=== PATIENT | male | born 1940 | race Caucasian/White ===

== ENCOUNTER 2020-11-20 04:42 | Day surgery (SDC) | payer OTHER, BC ==
[2020-11-19 10:44] VITALS: BMI 32.5
[2020-11-20] MEDS ORDERED: LIDOCAINE HCL 1% PRESERVATIVE FREE - 30ML VIAL IJ ONE (10:15)
[2020-11-20] MEDS ORDERED: IOHEXOL 180 MG/1 ML ML IJ ONE (10:16)
[2020-11-20] MEDS ORDERED: DEXAMETHASONE SOD PHOSPHATE 10 MG/1 ML VIAL IM ONE (10:20)
[2020-11-20 10:42] VITALS: TEMP 97.8
[2020-11-20 11:05] VITALS: BP 133/67; PULSE 66
== END 2020-11-20 10:55 | disposition home or self-care (01) ==
LOC: JASU-SURG 04:42
PROVIDERS: ATTEND Pain Medicine Pain Medicine
PROC: 3E0R33Z Introduction of Anti-inflammatory into Spinal Canal, Percutaneous Approach (ICD-10-PCS; 2020-11-20)
PROC: B01BYZZ Fluoroscopy of Spinal Cord using Other Contrast (ICD-10-PCS; 2020-11-20)
PROC: 3E0R3BZ Introduction of Anesthetic Agent into Spinal Canal, Percutaneous Approach (ICD-10-PCS; principal; 2020-11-20 09:15)
DX: M48.061 Spinal stenosis, lumbar region without neurogenic claudication (principal); M54.16 Radiculopathy, lumbar region
CPT/HCPCS: 76000-TC-FY; J1100

== ENCOUNTER 2020-12-25 04:29 | Day surgery (SDC) | payer OTHER, BC ==
[2020-12-22 17:01] VITALS: BMI 31.0
[2020-12-25] MEDS ORDERED: LIDOCAINE HCL/PF 1% SDV 5ML VIAL ONE (07:20)
[2020-12-25] MEDS ORDERED: DEXAMETHASONE SOD PHOSPHATE 10 MG/1 ML VIAL ONE (07:24)
[2020-12-25 08:08] VITALS: BP 150/78; PULSE 75; TEMP 96.6
== END 2020-12-25 10:10 | disposition home or self-care (01) ==
LOC: JASU-SURG 04:29
PROVIDERS: ATTEND Pain Medicine Pain Medicine
DX: Z53.8 Procedure and treatment not carried out for other reasons (principal)
CPT/HCPCS: J1100

== ENCOUNTER 2020-12-29 04:36 | Day surgery (SDC) | payer OTHER, BC ==
[2020-12-28 10:40] VITALS: BMI 30.9
[2020-12-29] MEDS ORDERED: LIDOCAINE HCL/PF 1% SDV 5ML VIAL ONE (08:03)
[2020-12-29] MEDS ORDERED: DEXAMETHASONE SOD PHOSPHATE 10 MG/1 ML VIAL ONE (08:03)
[2020-12-29] MEDS ORDERED: LIDOCAINE HCL 1% PRESERVATIVE FREE - 30ML VIAL IJ ONE (10:27)
[2020-12-29] MEDS ORDERED: IOHEXOL 180 MG/1 ML ML IJ ONE (10:27)
[2020-12-29] MEDS ORDERED: DEXAMETHASONE SOD PHOSPHATE 10 MG/1 ML VIAL IM ONE (10:27)
[2020-12-29 11:53] VITALS: BP 130/80; PULSE 70; TEMP 97.9
== END 2020-12-29 11:50 | disposition home or self-care (01) ==
LOC: JASU-SURG 04:36
PROVIDERS: ATTEND Pain Medicine Pain Medicine
PROC: 3E0R33Z Introduction of Anti-inflammatory into Spinal Canal, Percutaneous Approach (ICD-10-PCS; 2020-12-29)
PROC: 3E0R3BZ Introduction of Anesthetic Agent into Spinal Canal, Percutaneous Approach (ICD-10-PCS; principal; 2020-12-29 10:19)
DX: M48.061 Spinal stenosis, lumbar region without neurogenic claudication (principal); M54.16 Radiculopathy, lumbar region
CPT/HCPCS: 76000-TC-FY; J1100

== ENCOUNTER 2021-04-30 04:31 | Day surgery (SDC) | payer OTHER, BC ==
[2021-04-28 10:33] VITALS: BMI 33.2
[2021-04-30] MEDS ORDERED: PROPOFOL 20 ML ONE ×2 (14:56)
[2021-04-30] MEDS ORDERED: LIDOCAINE HCL/PF 1% SDV 5ML VIAL ONE (15:19)
[2021-04-30] MEDS ORDERED: MIDAZOLAM HCL 2 MG/2 ML SINGLE DOSE VIAL ONE ×2 (15:33→15:50)
[2021-04-30] MEDS ORDERED: ceFAZolin 2 GRAM PREMIX BAG IVPB ONE (15:40)
[2021-04-30] MEDS ORDERED: LIDOCAINE HCL/PF 2% SDV 5ML VIAL INF ONE (15:50)
[2021-04-30] MEDS ORDERED: IOHEXOL 180 MG/1 ML ML IJ ONE (15:50)
[2021-04-30] MEDS ORDERED: LIDOCAINE HCL 1% PRESERVATIVE FREE - 30ML VIAL INF ONE (15:50)
[2021-04-30] MEDS ORDERED: oxyCODONE HCL 5 MG TABLET PO PRN ×2 (17:07)
[2021-04-30] MEDS ORDERED: ONDANSETRON 4 MG/2 ML VIAL IVPUSH PRN (17:07)
[2021-04-30] MEDS ORDERED: PROMETHAZINE HCL 25 MG/1 ML VIAL IVPUSH PRN (17:07)
[2021-04-30] MEDS ORDERED: LACTATED RINGERS SOLUTION 1,000 ML IV SCH (17:15)
[2021-04-30 19:00] VITALS: BP 142/77; PULSE 62; TEMP 98.3
== END 2021-04-30 19:20 | disposition home or self-care (01) ==
LOC: JASU-SURG 04:31
PROVIDERS: ATTEND Pain Medicine Pain Medicine
PROC: BR19YZZ Fluoroscopy of Lumbar Spine using Other Contrast (ICD-10-PCS; 2021-04-30)
PROC: 01NB3ZZ Release Lumbar Nerve, Percutaneous Approach (ICD-10-PCS; principal; 2021-04-30 16:00)
DX: M48.062 Spinal stenosis, lumbar region with neurogenic claudication (principal); M54.16 Radiculopathy, lumbar region
CPT/HCPCS: 0275T; C1889; 76000-TC-FY; 94760

== ENCOUNTER 2022-03-18 04:05 | Day surgery (SDC) | payer OTHER, BC ==
[2022-03-17 11:36] VITALS: BMI 32.5
[2022-03-18] MEDS ORDERED: BUPIVACAINE HCL/PF 0.5% (5MG/ML) 10 ML VIAL ONE (07:44)
[2022-03-18] MEDS ORDERED: LIDOCAINE HCL/PF 1% SDV 5ML VIAL ONE (07:44)
[2022-03-18 10:14] VITALS: RESP 20
[2022-03-18] MEDS ORDERED: LIDOCAINE HCL 1% PRESERVATIVE FREE - 30ML VIAL IJ ONE (10:56)
[2022-03-18] MEDS ORDERED: BUPIVACAINE HCL/PF 0.5% (5MG/ML) 10 ML VIAL IJ ONE (10:56)
[2022-03-18] MEDS ORDERED: TRIAMCINOLONE ACETONIDE 40 MG/ML 10 ML VIAL IJ ONE (10:57)
[2022-03-18] MEDS ORDERED: IOHEXOL 180 MG/1 ML ML IJ ONE (11:04)
[2022-03-18 12:26] VITALS: BP 135/65; PULSE 76; TEMP 97.8
== END 2022-03-18 11:50 | disposition home or self-care (01) ==
LOC: JASU-SURG 04:05
PROVIDERS: ATTEND Pain Medicine Pain Medicine
PROC: 3E0U3BZ Introduction of Anesthetic Agent into Joints, Percutaneous Approach (ICD-10-PCS; 2022-03-18)
PROC: 3E0U33Z Introduction of Anti-inflammatory into Joints, Percutaneous Approach (ICD-10-PCS; principal; 2022-03-18 11:45)
DX: M53.3 Sacrococcygeal disorders, not elsewhere classified (principal)
CPT/HCPCS: 76000-TC-FY

== ENCOUNTER 2024-10-11 08:55 | Inpatient (IN) | payer OTHER, BC ==
[2024-10-11 09:04] VITALS: BMI 35.2
[2024-10-11] MEDS ORDERED: VANCOMYCIN 1 GM PREMIX (F) 1 GM/200 ML BAG ONE (10:23)
[2024-10-11] MEDS: VANCOMYCIN 1,000 MG in DEXTROSE 5%-WATER - 250 ML IVPB ONE (10:40)
[2024-10-11 10:58] LABS: ABSOLUTE IMMATURE GRANULOCYTES 0.11 x10^3/uL (0.0-0.031); BASOPHILS # 0.05 x10^3/uL (0.01-0.08); EOSINOPHIL % 1.9 % (0.8-7.0); EOSINOPHILS # 0.12 x10^3/uL (0.04-0.54); MCHC 32.7 g/dl (32.3-36.5); MEAN CELL VOLUME 98.9 fl (79.0-92.2); MEAN PLT VOLUME 10.2 fl (9.4-12.4); MONOCYTE # 0.81 x10^3/uL (0.30-0.82); MONOCYTE % 12.6 % (5.3-12.2); RDW 12.7 % (12.6-16.6)
[2024-10-11 11:04] LABS: INR 1.27 (0.83-1.09); PROTHROMBIN TIME (PATIENT) 14.0 SEC (9.7-13.0)
[2024-10-11 11:07] LABS: ACTIVATED PTT 32.0 SECONDS (25.2-36.5)
[2024-10-11 11:27] LABS: CO2 26.0 mmol/L (21-32); GLUCOSE,RANDOM 108.0 mg/dL (74-106)
[2024-10-11 11:30] LABS: CREATININE 0.9 mg/dL (0.55-1.3); SGOT/AST 23.0 U/L (15-37); SGPT/ALT 22.0 U/L (13-61)
[2024-10-11 11:32] LABS: TOT PROT 6.5 g/dl (6.4-8.2)
[2024-10-11 11:33] LABS: ALK PHOS 78.0 U/L (45-117)
[2024-10-11] MEDS: CEFTRIAXONE 2 GM in DEXTROSE 5%-WATER 100 ML IVPB SCH (15:03)
[2024-10-11 15:31] LABS: HIV INTERPRETATION NEGATIVE (NEGATIVE)
[2024-10-11 19:35] LABS: IRON SERUM 82.0 ug/dL (50-175)
[2024-10-11] MEDS: APIXABAN 5 MG TABLET PO SCH (21:16)
[2024-10-11] MEDS: UMECLIDINIUM/VILANTEROL (ANORO) 62.5/25 MCG INHALER IH SCH (21:16)
[2024-10-11] MEDS: CYANOCOBALAMIN 1,000 MCG TABLET (FP) PO SCH (21:16)
[2024-10-11] MEDS: ROSUVASTATIN CA 10 MG TABLET PO SCH (21:16)
[2024-10-11] MEDS: NEBIVOLOL 10 MG TABLET (FP) PO SCH (21:17)
[2024-10-12 09:38] LABS: ABSOLUTE IMMATURE GRANULOCYTES 0.04 x10^3/uL (0.0-0.031); BASOPHILS # 0.04 x10^3/uL (0.01-0.08); EOSINOPHIL % 2.5 % (0.8-7.0); EOSINOPHILS # 0.15 x10^3/uL (0.04-0.54); MCHC 32.8 g/dl (32.3-36.5); MEAN CELL VOLUME 96.9 fl (79.0-92.2); MEAN PLT VOLUME 10.4 fl (9.4-12.4); MONOCYTE # 0.51 x10^3/uL (0.30-0.82); MONOCYTE % 8.6 % (5.3-12.2); RDW 12.7 % (12.6-16.6)
[2024-10-12 10:18] LABS: GLUCOSE,RANDOM 138.0 mg/dL (74-106)
[2024-10-12 10:19] LABS: CO2 27.0 mmol/L (21-32)
[2024-10-12 10:21] LABS: CREATININE 0.9 mg/dL (0.55-1.3); SGOT/AST 22.0 U/L (15-37); SGPT/ALT 19.0 U/L (13-61)
[2024-10-12 10:22] LABS: TOT PROT 6.1 g/dl (6.4-8.2)
[2024-10-12 10:23] LABS: ALK PHOS 75.0 U/L (45-117)
[2024-10-12] MEDS: LOSARTAN POTASSIUM 50 MG TABLET PO SCH (10:23)
[2024-10-12 12:09] LABS: HCV DIAGNOSTIC IN-HOUSE W/RFLX NON-REACTIVE (NONREACTIVE)
[2024-10-12 14:10] VITALS: RESP 18
[2024-10-12] MEDS: NEBIVOLOL 10 MG TABLET (FP) PO SCH (21:19)
[2024-10-13 08:10] LABS: ABSOLUTE IMMATURE GRANULOCYTES 0.05 x10^3/uL (0.0-0.031); BASOPHILS # 0.04 x10^3/uL (0.01-0.08); EOSINOPHIL % 2.1 % (0.8-7.0); EOSINOPHILS # 0.16 x10^3/uL (0.04-0.54); MCHC 32.7 g/dl (32.3-36.5); MEAN CELL VOLUME 96.6 fl (79.0-92.2); MEAN PLT VOLUME 10.2 fl (9.4-12.4); MONOCYTE # 0.95 x10^3/uL (0.30-0.82); MONOCYTE % 12.2 % (5.3-12.2); RDW 12.6 % (12.6-16.6)
[2024-10-13 08:32] LABS: CO2 25.0 mmol/L (21-32)
[2024-10-13 08:33] LABS: GLUCOSE,RANDOM 104.0 mg/dL (74-106)
[2024-10-13 08:36] LABS: CREATININE 0.8 mg/dL (0.55-1.3)
[2024-10-13] MEDS: LOSARTAN POTASSIUM 50 MG TABLET PO SCH (10:39)
[2024-10-14 11:54] VITALS: PULSE 80
[2024-10-15 13:33] VITALS: BP 116/69; TEMP 97.3
== END 2024-10-15 16:19 | disposition home or self-care (01) | DRG 603 ==
LOC: JER 08:55 → JERBED 10:11 → J5S 12:57
PROVIDERS: ADMIT Internal Medicine; ATTEND Internal Medicine
DX: L03.115 Cellulitis of right lower limb (principal); I25.10 Atherosclerotic heart disease of native coronary artery without angina pectoris; G25.81 Restless legs syndrome; J44.9 Chronic obstructive pulmonary disease, unspecified; I48.91 Unspecified atrial fibrillation; Z79.01 Long term (current) use of anticoagulants; G47.30 Sleep apnea, unspecified; N40.0 Benign prostatic hyperplasia without lower urinary tract symptoms; D64.9 Anemia, unspecified
CPT/HCPCS: 36415; 73590-TC-RT-FY; 80048; 80053; 82607; 82728; 82746; 83540; 83550; 83735; 84100; 84466; 85025; 85610; 85651; 85730; 86803; 86850; 86900; 86901; 87040; 87389; 93005; 93010; 93971-TC; 97116-GP; 97161-GP; 99285-25